=== PATIENT | male | born 1965 | race Caucasian/White ===

== ENCOUNTER → 2017-07-15 | Outpatient (CLI) | payer OTHER ==
--- NOTE | 2017-07-15 14:11 | DIAGNOSTIC IMAGING REPORT ---
SINGLE VIEW PELVIS; 2 VIEWS LEFT HIP CLINICAL HISTORY: Left groin lump. FINDINGS: An AP view of the pelvis with AP and frog-leg views of the left hip are obtained. No prior studies are available for comparison at the time of dictation. The skeletal structures are well mineralized. No fracture is seen involving the hips or bony pelvis. Mild sclerotic change is noted in the sacroiliac joints and pubic symphysis. Mild arthritic change is seen in the hips with only minimal joint space narrowing. Mild bony overgrowth is seen along the left acetabular roof. The overlying soft tissues are normal in appearance. There is no bowel obstruction. A phlebolith is observed in the left hemipelvis. Lumbosacral spondylosis is partially imaged. IMPRESSION: No acute bony abnormality is seen involving the hips or pelvis. Electronically signed by: Dima Reardon M.D. 07/15/2017 2:10 PM Dictated Date/Time: 07/15/2017 2:08 PM
--- NOTE | 2017-07-15 14:32 | DIAGNOSTIC IMAGING REPORT ---
ABDOMEN FOR HERNIA HISTORY: 51 years-old Male R19.09,R10.32 acute left groin pain and palpable abnormality. COMPARISON: Radiographs of same day TECHNIQUE: Multiple real-time sonographic images of the left inguinal region were obtained assessing grayscale appearance. FINDINGS: A small fat filled left inguinal hernia is noted which is reducible. No loops of bowel are seen extending into the inguinal hernia site. No suspicious soft tissue masses or lesions identified. IMPRESSION: Small reducible fat filled left inguinal hernia. The above report was generated using voice recognition software. It may contain grammatical, syntax or spelling errors. Electronically signed by: Stevenson Murillo M.D. 07/15/2017 2:30 PM Dictated Date/Time: 07/15/2017 2:28 PM
== END | disposition home or self-care (01) ==
LOC: C.ULTR 13:20
PROVIDERS: ATTEND Internal Medicine
DX: R19.09 Other intra-abdominal and pelvic swelling, mass and lump (principal); R10.32 Left lower quadrant pain

== ENCOUNTER → 2017-08-01 | Outpatient (CLI) | payer OTHER ==
[~2017-08-01] MED LIST: OXYC-57 PO
--- NOTE | 2017-08-01 11:22 | DIAGNOSTIC IMAGING REPORT ---
CHEST 2 VIEWS ROUTINE HISTORY: 51 years-old Male K40.90 Inguinal hernia, leftZ01.818 Pre-op testingpre-op Z01.811 preoperative exam. No acute chest complaints. COMPARISON: None available TECHNIQUE: PA and lateral views of the chest FINDINGS: Cardiomediastinal and hilar silhouettes are within normal limits. The lungs appear mildly hyperinflated without pneumothorax, pleural effusion, focal airspace consolidation or overt pulmonary edema. The bones of the chest appear grossly intact. Degenerative changes are seen within the shoulders and spine. IMPRESSION: Mild hyperinflation without acute process. The above report was generated using voice recognition software. It may contain grammatical, syntax or spelling errors. Electronically signed by: Stevenson Murillo M.D. 08/01/2017 11:20 AM Dictated Date/Time: 08/01/2017 11:19 AM
[2017-08-01 11:58] LABS: BASO % 0.6 %; BASO ABS # 0.03 K/uL (0-0.2); EOS % 2.3 %; EOS ABS # 0.12 K/uL (0-0.5); HEMATOCRIT 46.1 % (42-52); HEMOGLOBIN 16.1 g/dL (14.0-18.0); IG# 0.01 K/uL (0.00-0.02); LYMPH % 25.7 %; LYMPH ABS # 1.36 K/uL (1.2-3.4); MEAN CELL VOLUME 93.1 fL (80-100); MEAN CORPUSCULAR HEMOGLOBIN 32.5 pg (25-34); MEAN CORPUSCULAR HGB CONC 34.9 g/dl (32-36); MEAN PLATELET VOLUME 9.6 fL (7.4-10.4); MONO % 8.7 %; MONO ABS # 0.46 K/uL (0.11-0.59); NEUT % 62.5 %; NEUT ABS # 3.32 K/uL (1.4-6.5); PLATELET COUNT 210 K/uL (130-400); RED CELL DISTRIBUTION WIDTH CV 13.2 % (11.5-14.5); RED CELL DISTRIBUTION WIDTH SD 45.2 fL (36.4-46.3)
[2017-08-01 13:15] LABS: BLOOD UREA NITROGEN 19 mg/dl (7-18); CARBON DIOXIDE 32 mmol/L (21-32); CREATININE 0.93 mg/dl (0.60-1.40); GLUCOSE 89 mg/dl (70-99); POTASSIUM 4.4 mmol/L (3.5-5.1); SODIUM 139 mmol/L (136-145)
== END | disposition home or self-care (01) ==
LOC: C.RAD 10:33
PROVIDERS: ATTEND Surgery
DX: Z01.818 Encounter for other preprocedural examination (principal); K40.90 Unilateral inguinal hernia, without obstruction or gangrene, not specified as recurrent

== ENCOUNTER 2017-08-04 06:32 | Day surgery (SDC) | payer OTHER ==
[2017-08-01 12:49] VITALS: Ht 180.3 cm; Wt 92.7 kg
[~2017-08-04] VITALS: Ht 180.3 cm; Wt 92.7 kg
[~2017-08-04 06:32] MED LIST changes: +DEXAMETHASONE SOD INJ 4 MG/ML VIAL ONE; +FENTANYL CITRATE INJ 50 MCG/1 ML 2 ML VIAL ONE; +GLYCOPYRROLATE INJ 0.2 MG/ML VIAL ONE; +LACTATED RINGER'S 1000ML 1,000 ML IV SCH; +LIDOCAINE HCL 2% 2 ML VIAL (20MG/ML) ONE; +MIDAZOLAM HCL 1 MG/ML 2ML VIAL ONE; +NEOSTIGMINE METHYLSULFATE 5 MG/5 ML SYR ONE; +ONDANSETRON INJ 2 MG/ML 2 ML VIAL ONE; -OXYC-57 PO; +PROPOFOL IV EMULSION 10 MG/ML 20 ML VIAL IV ONE; +ROCURONIUM BROMIDE 10 MG/ML 5 ML VIAL IV ONE
[2017-08-04 07:19] VITALS: BP 130/69; PULSE 62; TEMP 36.7; O2SAT 97
--- NOTE | 2017-08-04 07:52 | History & Physical Bridge Note ---
H&P Re-Evaluation Bridge Note: I have examined the patient, reviewed the History & Physical and in the interval since the performance of the History & Physical I have noted the following changes of clinical significance: No changes noted pt marked SO at bedside
[2017-08-04] MEDS ORDERED: BACITRACIN 50000 UNIT VIAL ONE (08:03)
[2017-08-04] MEDS ORDERED: BUPIVACAINE 0.5 % 5 MG/1 ML MPF 30ML VIAL ONE (08:03)
[2017-08-04] MEDS ORDERED: CEFAZOLIN SOD 1 GM VIAL ONE (08:25)
[2017-08-04] MEDS ORDERED: PROPOFOL IV EMULSION 10 MG/ML 20 ML VIAL IV ONE (08:27)
[2017-08-04] MEDS ORDERED: EpHEDrine SULFATE INJ 50 MG/ML AMP IV PRN (08:30)
[2017-08-04] MEDS ORDERED: LABETALOL HCL IV 5 MG/ML 20ML IV PRN (08:30)
[2017-08-04] MEDS ORDERED: MEPERIDINE HCL 25 MG/ML CARP IV PRN (08:30)
[2017-08-04] MEDS ORDERED: FENTANYL CITRATE INJ 50 MCG/1 ML 2 ML VIAL IV PRN (08:30)
[2017-08-04] MEDS ORDERED: HYDROmorphone INJ 1 MG/ML SYR IV PRN (08:30)
[2017-08-04] MEDS ORDERED: ONDANSETRON INJ 2 MG/ML 2 ML VIAL IV PRN ×2 (08:30→09:30)
[2017-08-04] MEDS ORDERED: ATROPINE SULFATE 0.1 MG/ML 5ML SYR IV PRN (08:30)
[2017-08-04] MEDS ORDERED: FENTANYL CITRATE INJ 50 MCG/1 ML 2 ML VIAL ONE ×2 (08:32→08:40)
--- NOTE | 2017-08-04 09:10 | [facility] Post Operative Brief Note ---
Immediate Operative Summary Operative Date Aug 04, 2017. Pre-Operative Diagnosis Inguinal Hernia, Left side Post-Operative Diagnosis left indirect hernia Procedure(s) Performed open left ind hernia repair with marlex mesh(tension free) Surgeon Dr. Jesus Gallegos Dump Grader Surgeon(s) Micaela Stewart PA-C Estimated Blood Loss 3 Findings See Below indirect ing hernia Specimens hernia contents
[2017-08-04] MEDS ORDERED: SODIUM CHLORIDE 0.9% 1000ML 1,000 ML IV SCH (09:21)
[2017-08-04] MEDS ORDERED: OXYC-57 PO ×2 (09:22)
--- NOTE | 2017-08-04 09:26 | Discharge Instructions ---
Discharge Instructions Date of Service Aug 04, 2017. Admission Reason for Admission: Left Inguinal Hernia Discharge Discharge Diagnosis / Problem: Left Inguinal Hernia Discharge Goals Goal(s): Decrease discomfort, Improve function Activity Recommendations Activity Limitations: as noted below Lifting Limitations: no more than 10 pounds Exercise/Sports Limitations: until after follow-up appointment May Resume Sexual Activity: after follow-up appointment Shower/Bathe: tomorrow Driving or Machine Use: resume 3 days after discharge . Instructions / Follow-Up Instructions / Follow-Up You may shower tomorrow. Please do not submerge your incision in standing water. Please call the office to make an appointment to have your abbey removed in 1 week. Please follow-up with Dr. Gallegos in the [facility] Surgery [facility] in 1-2 weeks. Please call the office at [phone] to make an appointment if you do not have one already. Please call the office with any questions or concerns. Current Hospital Diet Patient's current hospital diet: Discharge Diet Recommended Diet: Regular Diet Procedures Procedures Performed: open left ind hernia repair with marlex mesh(tension free) Pending Studies Studies pending at discharge: yes List of pending studies: Pathology report. Medical Emergencies . Who to Call and When: Medical Emergencies: If at any time you feel your situation is an emergency, please call 911 immediately. . Non-Emergent Contact Non-Emergency issues call your: Primary Care Provider, Surgeon Call Non-Emergent contact if: temperature is above 101.5, your pain is not controlled, wound has increased drainage, wound has increased redness . "Provider Documentation" section prepared by Micaela Stewart. . VTE Core Measure Inpt VTE Proph given/why not?: SCD's
[2017-08-04] MEDS ORDERED: OXYCODONE/ACETAMINOPHEN 5-325 TAB PO PRN ×2 (09:30)
--- NOTE | 2017-08-04 10:11 | Anesthesiology Progress Note ---
Anesthesia Post Op Note Date & Time Aug 04, 2017 at 10:11 Vital Signs Pain Intensity: 1 Vital Signs Past 12 Hours Date Time Temp Pulse Resp B/P (MAP) Pulse Ox O2 Delivery O2 Flow Rate FiO2 08/04/17 10:09 36.8 08/04/17 10:06 142/70 08/04/17 10:05 63 13 08/04/17 10:05 64 13 94 08/04/17 10:03 145/62 08/04/17 10:00 73 12 08/04/17 10:00 68 12 95 08/04/17 09:59 59 12 95 08/04/17 09:59 61 12 08/04/17 09:56 153/86 08/04/17 09:54 59 12 08/04/17 09:54 59 12 98 08/04/17 09:53 65 17 99 08/04/17 09:53 65 17 08/04/17 09:51 140/91 08/04/17 09:48 64 17 08/04/17 09:48 63 17 100 08/04/17 09:46 140/85 08/04/17 09:43 67 15 08/04/17 09:43 68 15 100 08/04/17 09:42 71 18 147/86 100 08/04/17 09:42 70 18 08/04/17 09:37 60 14 99 08/04/17 09:37 61 14 08/04/17 09:36 137/83 08/04/17 09:33 145/80 08/04/17 09:32 72 12 08/04/17 09:32 36.5 67 10 145/80 99 Oxymask 10 08/04/17 09:32 72 12 100 08/04/17 07:19 36.7 62 20 130/69 (89) 97 Room Air Notes Mental Status: alert / awake / arousable, participated in evaluation Pt Amnestic to Procedure: Yes Nausea / Vomiting: adequately controlled Pain: adequately controlled Airway Patency, RR, SpO2: stable & adequate BP & HR: stable & adequate Hydration State: stable & adequate Anesthetic Complications: no major complications apparent
[2017-08-04 10:15] VITALS: BP 142/66; PULSE 63; TEMP 36.4; O2SAT 96
--- NOTE | 2017-08-04 10:24 | OPERATIVE REPORT ---
DATE OF OPERATION: 08/04/2017 SURGEON: Dr. López. ELEVATOR REPAIRER HELPER: Micaela Stewart PA-C PREOPERATIVE DIAGNOSIS: Left inguinal hernia. POSTOPERATIVE DIAGNOSIS: Left indirect inguinal hernia. PROCEDURE: Left indirect inguinal hernia repaired with Marlex mesh reinforcement tension free. SUMMARY: The patient was brought into the operating room under LMA anesthesia, the left lower quadrant prepped with Betadine scrubbing solution and properly draped. We did preemptive local analgesia 2 fingerbreadths medial anterior superior iliac crest with 0.5% Marcaine infiltrated about 3 cm underneath the external oblique. An incision was made parallel to the inguinal ligament, deepened through subcutaneous tissue through Hanna fascia. We did enter was inserted exposing the external oblique all the way to the external ring. More local was used underneath the external oblique where we incised along the course of its fibers to the external ring, identified the ilioinguinal nerve and placed it underneath hemostats off the operative field inferiorly. At this point, the cord and structures were then elevator a Nabila drain. The patient had a significant amount of fatty tissue along the cord. As we freed this up, we were able to identify that the fat was incarcerated in the distal aspect of the sac. We opened up the indirect sac and able to divide part of this distal incarceration, which was minimal. We returned the rest of it into the abdomen, closed the indirect hernia sac with 3-0 silk suture, dividing the sac. The indirect ring was small, there was no true lipoma of the cord. At this point, we were able then to check above the conjoined tendon area where that seemed to be sufficient enough that we probably in a sheet of Marlex mesh, a 2 x 4 inches. We brought it into the operative field, cut appropriately sutured on with 2-0 nylon to the symphysis pubis, shelving portion of the inguinal ligament above the conjoined tendon to reconstruct the internal ring, placing the nerve along the cord and structure. The indirect ring was recreated which could accommodate the tip of a hemostat. Hemostasis was satisfactory. We then closed the external oblique along the top of the cord and the mesh with 3-0 interrupted silk to reconstruct the external ring that could only accommodate a finger. A 2-0 Vicryl for subcutaneous and abbey for skin edges. Dressing was applied. The procedure was tolerated well by the patient. Estimated blood loss approximately 3 mL. The patient was taken to recovery in good condition. I attest to the content of the Intraoperative Record and any orders documented therein. Any exception s are noted below.
[2017-08-04 10:45] VITALS: BP 140/64; PULSE 61; O2SAT 97
[2017-08-04 11:15] VITALS: BP 148/66; PULSE 63; TEMP 36.4; O2SAT 96
[2017-08-04 11:45] VITALS: BP 131/52; PULSE 68; TEMP 36.4; O2SAT 96
== END 2017-08-04 12:05 | disposition home or self-care (01) ==
LOC: C.ACU 06:32
PROVIDERS: ATTEND Surgery
DX: K40.90 Unilateral inguinal hernia, without obstruction or gangrene, not specified as recurrent (principal); Z87.891 Personal history of nicotine dependence; Z80.0 Family history of malignant neoplasm of digestive organs; Z83.3 Family history of diabetes mellitus; Z80.8 Family history of malignant neoplasm of other organs or systems